=== PATIENT | male | born 1995 | race Caucasian/White ===

== ENCOUNTER 2019-01-31 16:21 | Emergency (ER) | payer BC, MEDICAID ==
--- NOTE | 2019-01-31 17:02 | EDM.PDOC ---
ED HPI GENERAL MEDICAL PROBLEM - General Chief Complaint: Skin Complaint Stated Complaint: RASH Time Seen by Provider: 01/31/19 16:58 Source of Information: Reports: Patient - History of Present Illness INITIAL COMMENTS - FREE TEXT/NARRATIVE: HISTORY AND PHYSICAL: History of present illness: [Patient presents with discoid rash, pulmsand soles are unaffected does affect the dorsum of his hands arms legs down to his feet again dorsums, trunk his affected rashes mask maculopapular 1-3 cm in diameter patient has known allergy to Tide detergent however he is not himself using type rash began 5 days prior upon moving into his uncles home is not determined what in the home is causing the rash No lip swelling tongue swelling or oral pharyngeal edema Review of systems: As per history of present illness and below otherwise all systems reviewed and negative. Past medical history: As per history of present illness and as reviewed below otherwise noncontributory. Surgical history: As per history of present illness and as reviewed below otherwise noncontributory. Social history: No reported history of drug or alcohol abuse. Family history: As per history of present illness and as reviewed below otherwise noncontributory. Physical exam: HEENT: Atraumatic, normocephalic, pupils reactive, negative for conjunctival pallor or scleral icterus, mucous membranes moist, throat clear, neck supple, nontender, trachea midline.Lip swelling tongue swelling or oral pharyngeal edema Lungs: Clear to auscultation, breath sounds equal bilaterally, chest nontender. Heart: S1S2, regular, negative for clicks, rubs, or JVD. Abdomen: Soft, nondistended, nontender. Negative for masses or hepatosplenomegaly. Negative for costovertebral tenderness. Pelvis: Stable nontender. Genitourinary: Deferred. Rectal: Deferred. Extremities: Atraumatic, negative for cords or calf pain. Neurovascular unremarkable. Neuro: Awake, alert, oriented. Cranial nerves II through XII unremarkable. Cerebellum unremarkable. Motor and sensory unremarkable throughout. Exam nonfocal. Skin rash as per history of present illness Diagnostics: [The nuchal ] Therapeutics: [ into new Benadryl Zantac may benefit Prednisone ] Impression: allergic dermatitis ] Definitive disposition and diagnosis as appropriate pending reevaluation and review of above. - Related Data Allergies Allergy/AdvReac Type Severity Reaction Status Date / Time Penicillins Allergy Rash Verified 01/31/19 16:43 tide Allergy Rash Uncoded 01/31/19 16:43 Home Meds: Home Meds . [No Known Home Meds] 01/31/19 [History] Past Medical History - Past Health History Medical/Surgical History: Denies Medical/Surgical History Psychiatric History: Reports: Anxiety, Depression - Infectious Disease History Infectious Disease History: Reports: Chicken Pox - Past Surgical History HEENT Surgical History: Reports: Tonsillectomy Social & Family History - Family History Family Medical History: Unobtainable - Tobacco Use Smoking Status *Q: Current Every Day Smoker Years of Tobacco use: 1 Packs/Tins Daily: 0.5 - Caffeine Use Caffeine Use: Reports: Coffee, Energy Drinks, Soda - Recreational Drug Use Recreational Drug Use: No ED ROS GENERAL - Review of Systems Review Of Systems: See Below ED EXAM, SKIN/RASH Exam: See Below Course - Vital Signs Last Recorded V/S: Last Vital Signs Temp 96.8 F 01/31/19 16:44 Pulse 82 01/31/19 16:44 Resp 16 01/31/19 16:44 BP 133/66 01/31/19 16:44 Pulse Ox 97 01/31/19 16:44 Departure - Departure Time of Disposition: 17:01 Disposition: Home, Self-Care 01 Condition: Good Clinical Impression: Allergic dermatitis - Discharge Information Referrals: PCP,None [Primary Care Provider] - Additional Instructions: Continue Benadryl 50 mg every 46 hours as needed Zantac 150 milligrams by mouth twice a day may benefit Medication as prescribed Return if symptoms persist or worsen Consider formal allergy testing Follow-up with primary care in 2 weeks sooner as needed [facility] - Primary Care [address] [place] [id number] The following information is given to patients seen in the emergency department who are being discharged to home. This information is to outline your options for follow-up care. We provide all patients seen in our emergency department with a follow-up referral. The need for follow-up, as well as the timing and circumstances, are variable depending upon the specifics of your emergency department visit. If you don't have a primary care physician on staff, we will provide you with a referral. We always advise you to contact your personal physician following an emergency department visit to inform them of the circumstance of the visit and for follow-up with them and/or the need for any referrals to a consulting specialist. The emergency department will also refer you to a specialist when appropriate. This referral assures that you have the opportunity for follow-up care with a specialist. All of these measure are taken in an effort to provide you with optimal care, which includes your follow-up. Under all circumstances we always encourage you to contact your private physician who remains a resource for coordinating your care. When calling for follow-up care, please make the office aware that this follow-up is from your recent emergency room visit. If for any reason you are refused follow-up, please contact the [facility] emergency department at and asked to speak to the emergency department charge nurse.
[2019-01-31 17:18] VITALS: BP 113/65; PULSE 73
== END 2019-01-31 17:15 | disposition home or self-care (01) ==
LOC: MW.ED 16:21
DX: L23.9 Allergic contact dermatitis, unspecified cause (principal); F17.210 Nicotine dependence, cigarettes, uncomplicated; Z88.0 Allergy status to penicillin; Z91.048 Other nonmedicinal substance allergy status
CPT/HCPCS: 99282

== ENCOUNTER 2019-02-18 22:39 | Emergency (ER) | payer BC ==
[2019-02-18 22:56] VITALS: BP 132/63
[2019-02-18] MEDS ORDERED: Bacitracin Oint 1 GM U/D Packet TOP ONE (23:57)
[2019-02-18] MEDS ORDERED: Diphtheria,Pertussis(Acell),Tetanus Vaccine 0.5 ML Syringe IM ONE (23:57)
--- NOTE | 2019-02-19 00:01 | EDM.PDOC ---
ED HPI GENERAL MEDICAL PROBLEM - General Chief Complaint: Lower Extremity Injury/Pain Stated Complaint: INJURY TO LEFT KNEE Time Seen by Provider: 02/18/19 23:50 - History of Present Illness INITIAL COMMENTS - FREE TEXT/NARRATIVE: HISTORY AND PHYSICAL: History of present illness: The patient is a healthy 23-year-old male who is unsure of his last tetanus shot and presents after he accidentally punctured the area of his dorsal left knee with a sharp and of the belt buckle. He says that a piece broke off but he "dug it out" and cleaned the area with peroxide. He is concerned because it is a puncture wound and seeks evaluation. He has no bony tenderness to the knee and no other systemic issues or injuries as a result of tonight's events Review of systems: As per history of present illness and below otherwise all systems reviewed and negative. Past medical history: As per history of present illness and as reviewed below otherwise noncontributory. Surgical history: As per history of present illness and as reviewed below otherwise noncontributory. Social history: No reported history of drug or alcohol abuse. Family history: As per history of present illness and as reviewed below otherwise noncontributory. Physical exam: General: Well-developed well-nourished man who is nontoxic and vital signs are noted by me. He cannulated into the ED without distress HEENT: Atraumatic, normocephalic, negative for conjunctival pallor or scleral icterus, mucous membranes moist, throat clear, neck supple, nontender, trachea midline. Lungs: Clear to auscultation, breath sounds equal bilaterally, chest nontender. Heart: S1S2, regular rate and rhythm no overt murmurs Abdomen: Deferred Pelvis: Deferred Genitourinary: Deferred. Rectal: Deferred. Extremities: Atraumatic and full range of motion of all extremities with the exception of the left knee where there is a very superficial small puncture wounds seen at the patella tendon area without soft tissue swelling ecchymosis or palpable bony deformity. There is no soft tissue swelling in this region or any effusion and there is no active bleeding. There is only minimal tenderness in this area. The legs are, negative for cords or calf pain. Neurovascular unremarkable. Neuro: Awake, alert, oriented. Cranial nerves II through XII unremarkable. Cerebellum unremarkable. Motor and sensory unremarkable throughout. Exam nonfocal. Diagnostics: X-ray left knee to rule out foreign body Therapeutics: Cleansing of puncture wound bacitracin and dressing, Tdap Impression: Puncture wound of left knee Definitive disposition and diagnosis as appropriate pending reevaluation and review of above. - Related Data Allergies Allergy/AdvReac Type Severity Reaction Status Date / Time nickel Allergy Hives Verified 02/18/19 22:53 Penicillins Allergy Rash Verified 02/18/19 22:53 tide Allergy Rash Uncoded 02/18/19 22:53 Home Meds: Home Meds . [No Known Home Meds] 01/31/19 [History] Past Medical History - Past Health History Medical/Surgical History: Denies Medical/Surgical History Psychiatric History: Reports: Anxiety, Depression - Infectious Disease History Infectious Disease History: Reports: Chicken Pox - Past Surgical History HEENT Surgical History: Reports: Tonsillectomy Social & Family History - Family History Family Medical History: Noncontributory - Tobacco Use Smoking Status *Q: Current Every Day Smoker Years of Tobacco use: 1 Packs/Tins Daily: 1 - Caffeine Use Caffeine Use: Reports: Coffee, Soda - Recreational Drug Use Recreational Drug Use: No Review of Systems - Review of Systems Review Of Systems: ROS reveals no pertinent complaints other than HPI. ED EXAM, GENERAL - Physical Exam Exam: See Below (See dictation) Course - Vital Signs Last Recorded V/S: Last Vital Signs Temp 36.0 C 02/18/19 22:53 Pulse 90 02/18/19 22:53 Resp 17 02/18/19 22:53 BP 132/63 02/18/19 22:53 Pulse Ox 97 02/18/19 22:53 - Orders/Labs/Meds Orders: Active Orders 24 hr Category Date Time Status Communication Order [RC] STAT Care 02/18/19 23:57 Active Vaccines to be Administered [RC] PER UNIT ROUTINE Care 02/18/19 23:57 Active Meds: Medications Discontinued Medications Generic Name Dose Route Start Last Admin Trade Name Margaret PRN Reason Stop Dose Admin Bacitracin 1 dose 02/18/19 23:57 02/19/19 00:06 Bacitracin Oint 1 Gm TOP 02/18/19 23:58 1 dose ONETIME ONE Administration Diphtheria/Tetanus/Acell Pertussis 0.5 ml 02/18/19 23:57 02/19/19 00:06 Adacel IM 02/18/19 23:58 0.5 ml .ONCE ONE Administration Departure - Departure Time of Disposition: 00:54 Disposition: Home, Self-Care 01 Condition: Good Clinical Impression: Puncture wound of knee Qualifiers: Encounter type: initial encounter Laterality: left Qualified Code(s): S81.032A - Puncture wound without foreign body, left knee, initial encounter - Discharge Information Referrals: PCP,None [Primary Care Provider] - Forms: ED Department Discharge Additional Instructions: The following information is given to patients seen in the emergency department who are being discharged to home. This information is to outline your options for follow-up care. We provide all patients seen in our emergency department with a follow-up referral. The need for follow-up, as well as the timing and circumstances, are variable depending upon the specifics of your emergency department visit. If you don't have a primary care physician on staff, we will provide you with a referral. We always advise you to contact your personal physician following an emergency department visit to inform them of the circumstance of the visit and for follow-up with them and/or the need for any referrals to a consulting specialist. The emergency department will also refer you to a specialist when appropriate. This referral assures that you have the opportunity for followup care with a specialist. All of these measure are taken in an effort to provide you with optimal care, which includes your followup. Under all circumstances we always encourage you to contact your private physician who remains a resource for coordinating your care. When calling for followup care, please make the office aware that this follow-up is from your recent emergency room visit. If for any reason you are refused follow-up, please contact the [facility] emergency department at and ask to speak to the emergency department charge nurse. [facility] Primary care- Internal Medicine and Family [place] [phone] Keep the wound clean and dry with mild soap and water pat dry and apply bacitracin or Neosporin. Please take the antibiotics you have been prescribed from [facility], Augmentin, as directed. Please schedule a follow-up appointment with your provider or one of hours for reevaluation and further care and return to ER as needed and as discussed. Use [id number] medications such as Tylenol or Motrin for pain management - My Orders Last 24 Hours: My Active Orders 02/18/19 23:57 Communication Order [RC] STAT Vaccines to be Administered [RC] PER UNIT ROUTINE - Assessment/Plan Last 24 Hours: My Active Orders 02/18/19 23:57 Communication Order [RC] STAT Vaccines to be Administered [RC] PER UNIT ROUTINE
--- NOTE | 2019-02-19 00:53 | CR ---
Indication: Knee pain Technique: Left knee 3 views Comparison: None Findings: Bones: Alignment is normal. No fractures or bone lesions. Joint spaces: Joint spaces are well maintained. No degenerative changes. No sign of joint effusion. Soft tissues: Unremarkable. Impression: Unremarkable left knee. Dictated by Hira Mccabe MD @ Feb 19 2019 12:52AM Signed by Dr. Hira Mccabe @ Feb 19 2019 12:53AM
[2019-02-19 01:08] VITALS: PULSE 84
== END 2019-02-19 01:04 | disposition home or self-care (01) ==
LOC: MW.ED 22:39
DX: S81.032A Puncture wound without foreign body, left knee, initial encounter (principal); Z23 Encounter for immunization; F17.210 Nicotine dependence, cigarettes, uncomplicated; Z91.018 Allergy to other foods; Z88.0 Allergy status to penicillin; W10.8XXA Fall (on) (from) other stairs and steps, initial encounter
CPT/HCPCS: 73562-26-LT; 73562-LT; 90471; 90715; 99283; 99283-25

== ENCOUNTER 2022-03-29 18:41 | Emergency (ER) | payer BC, MEDICAID ==
[2022-03-29 19:53] LABS: CORONAVIRUS COVID-19 NAA NEGATIVE (NEGATIVE); INFLUENZA A NAA NEGATIVE (NEGATIVE); INFLUENZA B NAA NEGATIVE (NEGATIVE)
[2022-03-29 20:16] VITALS: BP 136/99; PULSE 71
== END 2022-03-29 20:31 | disposition home or self-care (01) ==
LOC: MW.ED 18:41
DX: J06.9 Acute upper respiratory infection, unspecified (principal); Z91.048 Other nonmedicinal substance allergy status; Z88.0 Allergy status to penicillin; Z20.822 Contact with and (suspected) exposure to COVID-19
CPT/HCPCS: 0240U; 99284

== ENCOUNTER 2022-11-17 18:43 | Emergency (ER) | payer BC, MEDICAID ==
[2022-11-17] MEDS ORDERED: Tetracaine HCl/PF 0.5% 4 ML Bottle EYELF ONE (19:37)
[2022-11-17 20:12] VITALS: BP 112/64; PULSE 67
== END 2022-11-17 20:12 | disposition home or self-care (01) ==
LOC: MW.ED 18:43
DX: S05.02XA Injury of conjunctiva and corneal abrasion without foreign body, left eye, initial encounter (principal); Z91.09 Other allergy status, other than to drugs and biological substances; Z88.0 Allergy status to penicillin; Z86.16 Personal history of COVID-19
CPT/HCPCS: 99283; J3490

== ENCOUNTER 2023-04-21 15:24 | Emergency (ER) | payer BC, MEDICAID ==
[2023-04-21] MEDS ORDERED: Acetaminophen 500 MG Tab PO ONE (15:43)
[2023-04-21] MEDS ORDERED: Sodium Chloride 0.9% 1,000 ML IV ONE (16:19)
[2023-04-21 17:03] LABS: BASOPHILS ABSOLUTE AUTO 0.03 K/uL (0.00-0.20); BASOPHILS PERCENT AUTO 0.3 % (0.0-1.0); EOSINOPHILS PERCENT AUTO 2.9 % (0.0-6.0); HEMATOCRIT 47.4 % (42.0-52.0); HEMOGLOBIN 17.3 g/dL (14.0-18.0); IMMATURE GRAN ABSOLUTE AUTO 0.03 K/uL (0.00-0.05); IMMATURE GRAN PERCENT AUTO 0.3 % (0.0-0.4); LYMPHOCYTES ABSOLUTE AUTO 2.17 K/uL (1.00-4.80); LYMPHOCYTES PERCENT AUTO 21.3 % (24.0-44.0); MEAN CORPUSCULAR HEMOGLOBIN 29.9 pg (28.0-32.0); MEAN CORPUSCULAR HGB CONC 36.5 g/dL (32.0-36.0); MEAN CORPUSCULAR VOLUME 81.9 fL (83.0-99.0); MEAN PLATELET VOLUME 9.5 fL (9.4-12.4); MONOCYTES ABSOLUTE AUTO 0.67 K/uL (0.00-0.80); MONOCYTES PERCENT AUTO 6.6 % (0.0-8.0); NEUTROPHILS PERCENT AUTO 68.6 % (41.0-71.0); PLATELET COUNT,PLT 301 K/uL (150-400); RED BLOOD CELL COUNT 5.79 M/uL (4.52-5.90)
[2023-04-21 17:39] LABS: A/G RATIO 1.5 (0.9-1.6); ACETAMINOPHEN <2.0 ug/mL; ALANINE AMINOTRANSFERASE,ALT 29 IU/L (14-63); ALBUMIN 4.4 g/dL (3.4-5.0); ALKALINE PHOSPHATASE 77 U/L (46-116); ASPARTATE AMNIOTRANSFERASE,AST 26 IU/L (15-37); BILIRUBIN TOTAL 1.1 mg/dL (0.2-1.0); BLOOD UREA NITROGEN,BUN 13 mg/dL (7.0-18.0); CALCIUM 9.2 mg/dL (8.5-10.1); CARBON DIOXIDE,CO2 24.7 mmol/L (21.0-32.0); CHLORIDE,CL 101 mmol/L (98-107); CREATININE 1.1 mg/dL (0.8-1.3); EST CRCL DRUG DOSING (CG) 108.01 mL/min; GLUCOSE RANDOM 84 mg/dL (74-106); POTASSIUM,K 4.2 mmol/L (3.5-5.1); PROTEIN TOTAL,TP 7.4 g/dL (6.4-8.2); SALICYLATE 0.6 mg/dL (0.0-20.0); SODIUM,NA 138 mmol/L (136-148)
[2023-04-21 17:43] LABS: CORONAVIRUS COVID-19 NAA NEGATIVE (NEGATIVE); INFLUENZA A NAA NEGATIVE (NEGATIVE); INFLUENZA B NAA NEGATIVE (NEGATIVE); RESPIRATORY SYNCYTIAL VIR NAA NEGATIVE (NEGATIVE)
[2023-04-21 17:54] LABS: ESTIMATED GFR 96 mL/min (>60)
[2023-04-21 21:07] VITALS: PULSE 66
[2023-04-21 22:00] LABS: AMPHETAMINES SCREEN, URINE PRESUMPTIVE POSITIVE (CUTOFF=500); BARBITURATE SCREEN,URINE NEGATIVE (CUTOFF=200); BENZODIAZEPINES SCREEN,URINE NEGATIVE (CUTOFF=150); BUPRENORPHINE SCREEN,URINE NEGATIVE (CUTOFF=10); METHADONE SCREEN, URINE NEGATIVE (CUTOFF=200); METHAMPHETAMINES SCREEN, URINE PRESUMPTIVE POSITIVE (CUTOFF=500); OXYCODONE SCREEN,URINE NEGATIVE (CUT0FF=100); PCP SCREEN,URINE NEGATIVE (CUTOFF=25); THC SCREEN,URINE 20 NG/ML PRESUMPTIVE POSITIVE (CUTOFF=50)
[2023-04-21 22:05] LABS: APPEARANCE,URINE CLEAR; BILIRUBIN,URINE NEGATIVE (NEGATIVE); COLOR,URINE YELLOW; GLUCOSE,URINE NEGATIVE (NEGATIVE); KETONES,URINE 15 mg/dL (NEGATIVE); LEUKOCYTE ESTERASE,URINE NEGATIVE (NEGATIVE); NITRITE,URINE NEGATIVE (NEGATIVE); OCCULT BLOOD,URINE NEGATIVE (NEGATIVE); PROTEIN,URINE NEGATIVE (NEGATIVE); UROBILINOGEN,URINE 0.2 EU/dL (<2.0)
[2023-04-21 22:13] VITALS: BP 108/60
== END 2023-04-21 22:11 | disposition home or self-care (01) ==
LOC: MW.ED 15:24
DX: T33.532A Superficial frostbite of left finger(s), initial encounter (principal); T33.531A Superficial frostbite of right finger(s), initial encounter; F19.10 Other psychoactive substance abuse, uncomplicated; X31.XXXA Exposure to excessive natural cold, initial encounter; Z20.822 Contact with and (suspected) exposure to COVID-19; Z86.16 Personal history of COVID-19; Z88.0 Allergy status to penicillin; Z91.048 Other nonmedicinal substance allergy status
CPT/HCPCS: 0241U; 36415; 70450; 80053; 80143; 80179; 80305; 80307; 81003; 82375; 85025; 93005; 99284; J7030; 93010; 99283

== ENCOUNTER 2023-09-19 17:54 | Emergency (ER) | payer BC | END 2023-09-19 19:10 | disposition left against medical advice (07) | LOC: MW.ED 17:54 | DX: Z53.21 Procedure and treatment not carried out due to patient leaving prior to being seen by health care provider (principal) ==

== ENCOUNTER 2024-06-13 22:04 | Emergency (ER) | payer MEDICAID ==
[2024-06-13] MEDS: Acetaminophen 325 MG Tab PO ONE (22:59)
[2024-06-13] MEDS: Ibuprofen 400 MG Tab PO ONE (22:59)
[2024-06-13 23:05] VITALS: BP 137/87; PULSE 92
== END 2024-06-13 23:45 | disposition home or self-care (01) ==
LOC: MW.ED 22:04
DX: S80.211A Abrasion, right knee, initial encounter (principal); Z90.49 Acquired absence of other specified parts of digestive tract; Z88.0 Allergy status to penicillin; Z91.048 Other nonmedicinal substance allergy status; X58.XXXA Exposure to other specified factors, initial encounter
CPT/HCPCS: 73560; 73590; 99284; A9270

== ENCOUNTER 2024-10-26 04:41 | Emergency (ER) | payer MEDICAID ==
[2024-10-26] MEDS: Tetracaine HCl/PF 0.5% 4 ML Bottle EYEBOTH ONE (05:00)
[2024-10-26] MEDS: Acetaminophen/HYDROcodone 325-10 MG Tab PO ONE (05:34)
[2024-10-26] MEDS: Moxifloxacin 0.5% Ophth Soln 3 ML Bottle EYERT ONE (06:24)
[2024-10-26 06:31] VITALS: BP 110/76; PULSE 53
== END 2024-10-26 06:44 | disposition home or self-care (01) ==
LOC: MW.ED 04:41
DX: H10.31 Unspecified acute conjunctivitis, right eye (principal); Z88.0 Allergy status to penicillin; Z91.09 Other allergy status, other than to drugs and biological substances; Z79.899 Other long term (current) drug therapy; Z90.49 Acquired absence of other specified parts of digestive tract
CPT/HCPCS: 99283; A9270; 99282; J3490

== ENCOUNTER 2025-01-18 14:52 | Emergency (ER) | payer MEDICAID ==
[2025-01-18] MEDS: Ondansetron 4 MG/2 ML SDV IVPUSH ONE (16:30)
[2025-01-18 17:06] LABS: BASOPHILS ABSOLUTE AUTO 0.05 K/uL (0.00-0.20); BASOPHILS PERCENT AUTO 0.7 % (0.0-1.0); EOSINOPHILS ABSOLUTE AUTO 0.26 K/uL (0.00-0.45); EOSINOPHILS PERCENT AUTO 3.7 % (0.0-6.0); IMMATURE GRAN ABSOLUTE AUTO 0.01 K/uL (0.00-0.05); IMMATURE GRAN PERCENT AUTO 0.1 % (0.0-0.4); LYMPHOCYTES ABSOLUTE AUTO 2.81 K/uL (1.00-4.80); LYMPHOCYTES PERCENT AUTO 40.1 % (24.0-44.0); MEAN PLATELET VOLUME 9.7 fL (9.4-12.4); MONOCYTES ABSOLUTE AUTO 0.58 K/uL (0.00-0.80); MONOCYTES PERCENT AUTO 8.3 % (0.0-8.0); NEUTROPHILS ABSOLUTE AUTO 3.30 K/uL (1.80-7.70); NEUTROPHILS PERCENT AUTO 47.1 % (41.0-71.0); NRBC ABSOLUTE 0.00 K/uL (0.00-0.02); NRBC PERCENT 0.0 /100WBC (0.0-0.2); PLATELET COUNT,PLT 251 K/uL (150-400); RED BLOOD CELL COUNT 6.21 M/uL (4.52-5.90); WHITE BLOOD CELL COUNT,WBC 7.01 K/uL (3.9-11.3)
[2025-01-18 17:32] LABS: A/G RATIO 1.5 (0.9-1.6); ALANINE AMINOTRANSFERASE,ALT 30.0 IU/L (14-63); ASPARTATE AMNIOTRANSFERASE,AST 24.0 IU/L (15-37); BILIRUBIN TOTAL 1.2 mg/dL (0.2-1.0); BLOOD UREA NITROGEN,BUN 17.0 mg/dL (7.0-18.0); CARBON DIOXIDE,CO2 27.6 mmol/L (21.0-32.0); CHLORIDE,CL 105.0 mmol/L (98-107); CREATININE 1.1 mg/dL (0.8-1.3); EST CRCL DRUG DOSING (CG) 93.74 mL/min; GLUCOSE RANDOM 90.0 mg/dL (74-106); POTASSIUM,K 5.3 mmol/L (3.5-5.1); PROTEIN TOTAL,TP 7.6 g/dL (6.4-8.2); SODIUM,NA 143.0 mmol/L (136-148)
[2025-01-18 17:33] LABS: ESTIMATED GFR 94.0 mL/min (>60)
[2025-01-18 18:06] VITALS: BP 121/79; PULSE 98
== END 2025-01-18 17:57 | disposition home or self-care (01) ==
LOC: MW.ED 14:52
DX: R11.2 Nausea with vomiting, unspecified (principal); R19.7 Diarrhea, unspecified; Z91.048 Other nonmedicinal substance allergy status; Z88.0 Allergy status to penicillin
CPT/HCPCS: 36415; 80053; 83690; 85025; 96361; 96374; 99284; J2405; J7030; 99283